=== PATIENT | female | born 1950 | race Caucasian/White ===

== ENCOUNTER 2019-03-18 19:26 | Emergency (ER) | payer OTHER ==
[~2019-03-18] VITALS: Ht 172.7 cm; Wt 81.2 kg
[2019-03-18 19:38] VITALS: Ht 172.7 cm; Wt 81.2 kg
[2019-03-18 23:53] VITALS: BP 170/80
== END 2019-03-18 23:53 | disposition home or self-care (01) ==
LOC: ED 19:26
DX: M75.02 Adhesive capsulitis of left shoulder (principal); I10 Essential (primary) hypertension; E11.9 Type 2 diabetes mellitus without complications; V89.2XXA Person injured in unspecified motor-vehicle accident, traffic, initial encounter; Y93.89 Activity, other specified; Y92.89 Other specified places as the place of occurrence of the external cause; Y99.8 Other external cause status
CPT/HCPCS: 82962; J3010; J7030; Q0162

== ENCOUNTER 2019-03-24 10:49 | Inpatient (IN) | payer OTHER ==
[~2019-03-24] VITALS: Ht 165.1 cm; Wt 68.3 kg
--- NOTE | 2019-03-24 10:57 | NUR ---
halie snyder at bedside for evaluations/assessments.tita guerin.awaits reevaluations.
[2019-03-24 11:35] LABS: PLATELET COUNT 392 x10^3mcL (130-400)
[2019-03-24 11:40] LABS: RED CELL DISTRIBUTION WIDTH 14.6 % (11.5-14.5)
[2019-03-24 11:58] LABS: BILIRUBIN TOTAL 0.61 mg/dL (0.20-1.00); CALCIUM 9.1 mg/dL (8.5-10.1); CARBON DIOXIDE 22.6 mmol/L (21-32); CREATININE SERUM 1.6 mg/dL (0.6-1.0); POTASSIUM SERUM 3.5 mmol/L (3.5-5.1); TOTAL PROTEIN, SERUM 6.3 g/dL (6.4-8.2)
[2019-03-24 12:04] LABS: ALBUMIN 1.9 g/dL (3.4-5.0)
--- NOTE | 2019-03-24 12:08 | NUR ---
RESTING ER # 11 HOB @ 45 DEGREES SR UP,MONITORS ON.PT TOLERATED PROCEDURES WITH NO INCIDENTS.ADULT RELATIVES BEDSIDE.awaits test results,reevaluations.tita guerin.
--- NOTE | 2019-03-24 13:29 | NUR ---
ER MD AT BEDSIDE FOR REEVALUATIONS.adult relatives bedside.awaits reevaluations.
--- NOTE | 2019-03-24 13:30 | NUR ---
ABOUT 200ML URINE VIA BEDPAN,ASSISTED BY TWO ADULT FEMALE RELATIVES PER PT REQUEST.
[2019-03-24 13:39] LABS: BAND NEUTROPHIL 24 % (0-10); BASOPHIL 0 % (0-2); METAMYELOCTE 1 % (0-2); MONOCYTE 6 % (0-7); PLATELET MORPHOLOGY LARGE PLATELET SEEN; SEGMENTED NEUTROPHILS 63 % (37-75); rbc morphology (normal/abnorm) NORMAL (NORMAL)
--- NOTE | 2019-03-24 15:27 | NUR ---
RESTING ASLEEP AT TIMES,NAD.PT TOLERATED PROCEDURES WITH NO INCIDENTS.MON ITORS ON.ADULT RELATIVES BEDSIDE.AWAITS BED ASSIGNMENT,REEVALUATIONS.
--- NOTE | 2019-03-24 15:48 | NUR ---
PT ENDORsed to/accepted by j[facility] wagoner.awaits transport services,reevaluations.
[2019-03-24] MEDS ORDERED: GLIPIZIDE10 M2 PO (15:53)
[2019-03-24] MEDS ORDERED: HYDROCHLOROTHIA50 MG PO (15:54)
[2019-03-24] MEDS ORDERED: COZAAR100 MG PO (15:54)
[2019-03-24] MEDS ORDERED: ZOCOR40 MG PO (15:55)
[2019-03-24 16:25] VITALS: BP 154/68
--- NOTE | 2019-03-24 16:31 | NUR ---
[facility] ORIENTED PT TO ROOM AND SURROUNDINGS. IV NOTED TO RH PATENT AND INTACT. TELE 1 PLACED ON PT READING NSR. INSTRUCTED PT ON THE USE OF CALL LIGHT FOR ASSISTANCE. ENDORSED PT TO PRIMARY NURSE JOHN
--- NOTE | 2019-03-24 17:44 | NUR ---
PT BEING DISCHARGED TO [facility]. ROOM 112-[address] CRUZ. REPORT # [id number], ENDORSED TO IVONE FERNÁNDEZ. [employer] TIME 2029 WITH .
--- NOTE | 2019-03-24 18:47 | NUR ---
PT RESTING IN BED WITH BOTH EYES CLOSED. NO S/S OF ACUTE DISTRESS. NO S/S OF PAIN AT THIS TIME. NO SOB ON ROOM AIR. NSR ON TELE 1, HR 75. NO S/S OF CHEST PAIN. ERYTHEMA/EDEMA NOTED TO CLEMENTINE HICKS. IV WNL TO RH, PATENT AND FLUSHES WELL. IV FLUIDS FLOWING. BED IN LOW POSITION. CALL LIGHT WITHIN REACH. WILL ENDORSE TO ONCOMING SHIFT.
--- NOTE | 2019-03-24 19:20 | NUR ---
RECEIVED PT FROM PREVIOUS SHIFT NURSE. PT AOX4, DENIES POLANCO/DIZZINESS. TELE #1, SR, HR 75. DENIES CP/PRESSURE. DENIES SOB/DIFFICULTY BREATHING, ON RA. ERYTHEMA/EDEMA NOTED TO L. ARM. IV TO R. HAND, INTACT AND PATENT. BED IN LOWEST POSITION. CALL LIGHT WITHIN REACH. WILL CONTINUE TO MONITOR.
[2019-03-24 20:52] VITALS: BP 107/54
--- NOTE | 2019-03-25 02:15 | NUR ---
PT RESTING IN BED. RR EVEN AND UNLABORED. IN NO ACUTE DISTRESS. CALL LIGHT WITHIN REACH. BED IN LOWEST POSITION. WILL CONTINUE TO MONITOR.
[2019-03-25 05:32] VITALS: BP 143/57
[2019-03-25 07:07] LABS: PLATELET COUNT 366 x10^3mcL (130-400)
--- NOTE | 2019-03-25 07:21 | NUR ---
ASSUMED CARE OF PATIENT. SEEN AWAKE AND ALERT THIS MORNING. NO COMPLAINTS OF PAIN OR DISCOMFORT. NO APPARENT DISTRESS NOTED. LUE EDEMATOUS WITH NO REDNESS, PAIN UPON TOUCH. IV TO RHAND PATENT AND AND INFUSING 70ML/HR NS, NO REDNESS/SWELLING NOTED. WILL CONTINUE TO MONITOR.
[2019-03-25 07:49] LABS: CALCIUM 8.7 mg/dL (8.5-10.1); CARBON DIOXIDE 26.3 mmol/L (21-32); CHLORIDE SERUM 95 mmol/L (98-107); CREATININE SERUM 0.9 mg/dL (0.6-1.0); GFR1 > 60 mL/min; GLUCOSE SERUM 213 mg/dL (74-106); SODIUM SERUM 131 mmol/L (136-145)
[2019-03-25 07:50] VITALS: BP 114/51
[2019-03-25 07:57] LABS: RED CELL DISTRIBUTION WIDTH 14.8 % (11.5-14.5)
--- NOTE | 2019-03-25 08:59 | NUR ---
SPOKE WITH AND BRISEYDA AWARE OF THE RESULTS OF K-3.0 AND WITH ORDER AND BLOOD CULTURE AND CONTINUE ANTIBIOTIC.
--- NOTE | 2019-03-25 09:16 | NUR ---
PATIENTS DAUGHTER UPDATED WITH PLAN OF CARE. MRI MACHINE STILL DOWN TODAY, PER MRI STATES MACHINE WILL NOT LIKELY BE FIXED TODAY.
--- NOTE | 2019-03-25 09:28 | NUR ---
NOTIFIED OF LOW K AND BLOOD CULTURE RESULTS OF G+COCCI.
--- NOTE | 2019-03-25 10:07 | NUR ---
PATIENT SEEN RESTING IN BED WITH EQUAL AND UNLABORED RESPIRATIONS. EASILY AROUSABLE. NO COMPLAINTS OF PAIN AT THIS TIME.
--- NOTE | 2019-03-25 11:00 | NUR ---
BS 214, 6 UNITS REGULAR INSULIN PROVIDED PER SLIDING SCALE. SEEN RESTING IN BED WITH EQUAL AND UNLABORED RESPIRATIONS WITH NO ACUTE DISTRESS NOTED. EASILY AROUSABLE. NO NEW ISSUES.
[2019-03-25 11:44] LABS: BAND NEUTROPHIL 5 % (0-10); BASOPHIL 0 % (0-2); MONOCYTE 2 % (0-7); SEGMENTED NEUTROPHILS 91 % (37-75)
[2019-03-25 11:45] LABS: PLATELET MORPHOLOGY PLATELETS INCREASED; rbc morphology (normal/abnorm) ABNORMAL (NORMAL)
[2019-03-25 12:05] VITALS: BP 135/53
--- NOTE | 2019-03-25 12:17 | NUR ---
PRN DILAUDID PROVIDED FOR 6/ LUE PAIN.
--- NOTE | 2019-03-25 13:11 | NUR ---
PATIENT FAMILY AT BEDSIDE. PATIENT STATES HER ARM "FEELS HEAVY," DUE TO WET TOWEL ON SHOULDER. LEFT ARM FEELS WARM TO TOUCH. ICE PACK PROVIDED WITH GOOD EFFECT.
--- NOTE | 2019-03-25 15:09 | NUR ---
NEW ICE PACK PROVIDED FOR SHOULDER. FAMILY AT BEDSIDE. NO NEW ISSUES.
[2019-03-25 16:50] VITALS: BP 125/63
[2019-03-25 17:03] VITALS: BP 135/53
--- NOTE | 2019-03-25 17:38 | NUR ---
PRN DILAUDID PROVIDED FOR 6/10 LUE PAIN.
--- NOTE | 2019-03-25 18:10 | NUR ---
JACKELIN CALLED WITH PROVIDED NUMBER FROM CASE MANAGEMENT. NURSE STATES PATIENT WAS SUPPOSED TO BE GIVEN DURING CHANGE OF SHIFT. STATES SHE WILL CALL BACK ONCE NURSE IS CONFIRMED FOR PATIENT. FLOOR NUMBER PROVIDED. AWAITING CALL BACK FOR REPORT.
--- NOTE | 2019-03-25 18:18 | NUR ---
REPORT FROM KRISTI VANG OF DELAYED IDENTIFICATION TECHNICIAN AT [phone]
--- NOTE | 2019-03-25 19:03 | NUR ---
PATEINT SEEN RESTING IN BED WITH FAMILY AT BEDSIDE. IV TO RIGHT HAND PATENT AND INFUSING NS AT 70ML/HR. NO COMPLAINTS OF PAIN AT THIS TIME. ATTEMPTED TO CONTACT [facility] BUT WAS LEFT ON HOLD. WILL ENDORSE CARE TO ONCOMING RN.
--- NOTE | 2019-03-25 19:30 | NUR ---
RECIEVED PATIENT AT START OF SHIFT A/O X4, ON TELE 1 NSR. ALONZO HAS +2 EDEMA AND PATIENT IS REPORTING 7/10 PAIN. BLE +2 PITTING EDEMA WELL. PULSES MODERATE. LUNGS CTAB, NO SOB ON RA. BS ACTIVE. PATIENT VOIDED ON BEDPAN 250 MLS. IV TO R HAND IS INFUSING WITHOUT ERYTHEMA OR INFILTRATION. BED LOCKED AND IN LOWEST POSIITON. CALL LIGHT WITHIN REACH. SAFETY AND USE OF CALL LIGHT REINFORCED.
--- NOTE | 2019-03-25 19:44 | NUR ---
PATIENT GIVEN ATIVAN PO PER EMAR DUE TO ANXIETY ANTICIPATING TRANSFER TO [place].
--- NOTE | 2019-03-25 20:03 | NUR ---
PARAMEDICS AT BEDSIDE TO TRANSFER PATIENT. IV TO RHAND SALINE LOCKED. TELE AND ID BAND REMOVED. PATIENTS BELONGINGS WITH FAMILY. PATIENT TOLERATED TRANSFER VIA GURNEY WELL.
== END 2019-03-25 20:04 | disposition short-term general hospital (02) | DRG 549 ==
LOC: ED 10:49 → DU 14:50
PROVIDERS: Emergency Medicine; ADMIT Internal Medicine Pulmonary Disease
DX: M00.9 Pyogenic arthritis, unspecified (principal); L03.114 Cellulitis of left upper limb; E87.1 Hypo-osmolality and hyponatremia; N17.9 Acute kidney failure, unspecified; E11.65 Type 2 diabetes mellitus with hyperglycemia; I10 Essential (primary) hypertension; E78.5 Hyperlipidemia, unspecified; E66.9 Obesity, unspecified; Z79.84 Long term (current) use of oral hypoglycemic drugs
CPT/HCPCS: 82962; 83880; G0378; J0690; J0696; J1170; J1644; J1815; J2405; J3010; J3480; J7030; Q0092